=== PATIENT | female | born 1950 | race Caucasian/White ===

== ENCOUNTER 2020-01-03 03:23 | Inpatient (IN) | payer MEDICARE ==
[~2020-01-03] VITALS: Ht 165.1 cm; Wt 64.2 kg
[~2020-01-03 03:23] MED LIST: ACYC-114 PO; ATOR40TA PO; CALC-112 PO; LISI40TA PO; NITR0.4T28 SL; PRAS10TA4 PO; TRAM50TA2 PO
[2020-01-03] MEDS ORDERED: SODIUM CHLORIDE FLUSH 10ML SYR IVF ONE (03:30)
--- NOTE | 2020-01-03 03:30 | NUR ---
PT TO ED PER ROBERTO GAMBOA TRANSFER FOR FURTHER NEURO EVALUATION. PT REPORTS DIZZINESS ONSET 5 DAYS AGO AND SEEN IN THE ER. NEGATIVE WORKUP AT THAT TIME. DIZZINESS PERSISTED AND [facility] AND SENT FOR FURTHER EVALUATION DUE TO GAIT INSTABILITY AND DIZZINESS. WAS GIVEN MECLIZINE, IVF BOLUS AND POTASSIUM. REPORTS NO DIZZINESS WHEN LAYING DOWN. DENIES CURRENT NEEDS. PLACED ON INVAS TECH.
[2020-01-03] MEDS ORDERED: GABA300C PO (03:42)
[2020-01-03] MEDS ORDERED: BENA5TAB3 PO (03:42)
[2020-01-03] MEDS ORDERED: VITA1CAP PO (03:48)
[2020-01-03] MEDS ORDERED: ATOR-2 PO (03:48)
[2020-01-03] MEDS ORDERED: COLE1TAB2 PO (03:48)
[2020-01-03] MEDS ORDERED: METO25TA2 PO (03:48)
[2020-01-03] MEDS ORDERED: GABA100C PO (03:48)
[2020-01-03] MEDS ORDERED: CLOP75TA52 PO (03:48)
[2020-01-03 03:49] LABS: BASOPHILS # (AUTO) 0.04 x10^3/uL (0-0.1); BASOPHILS % (AUTO) 0 % (0-1); EOSINOPHILS % (AUTO) 2 % (1-7); LYMPHOCYTES # (AUTO) 2.87 x10^3/uL (1-3.4); LYMPHOCYTES % (AUTO) 29 % (22-44); MD NO; MEAN CORPUSCULAR HEMOGLOBIN 31.1 pg (27.0-34.8); MEAN CORPUSCULAR HGB CONC 33.1 g/dL (32.4-35.8); MEAN CORPUSCULAR VOLUME 94.2 fL (80-100); MEAN PLATELET VOLUME 8.3 fL (7.4-10.4); MONOCYTES # (AUTO) 0.72 x10^3/uL (0.2-0.8); MONOCYTES % (AUTO) 7 % (2-9); NEUTROPHILS # (AUTO) 5.97 x10^3/uL (1.8-6.8); NEUTROPHILS % (AUTO) 61 % (42-75); PLATELET COUNT 244 x10^3/uL (130-400); RED BLOOD COUNT 4.46 x10^6/uL (3.82-5.3); RED CELL DISTRIBUTION WIDTH 13.5 % (9.6-15.2)
[2020-01-03 03:57] LABS: ALBUMIN 3.5 g/dL (3.4-5.0); ANION GAP 5 mmol/L (5-15); CALCIUM 8.3 mg/dL (8.5-10.1); CHLORIDE 110 mmol/L (98-107)
[2020-01-03 04:00] LABS: INTERNATIONAL NORMALIZED RATIO 1.1 (0.93-1.1); PROTHROMBIN TIME 11.7 Seconds (9.6-11.5)
[2020-01-03 04:03] LABS: ALANINE AMINOTRANSFERASE 27 U/L (12-78); ALKALINE PHOSPHATASE 53 U/L (45-117); BILIRUBIN,TOTAL 0.5 mg/dL (0.2-1.0); CREATININE 1.13 mg/dL (0.55-1.02); TOTAL PROTEIN 7.4 g/dL (6.4-8.2); TROPONIN I < 0.015 ng/mL (0.000-0.045)
--- NOTE | 2020-01-03 04:54 | NUR ---
UPDATED ON PLAN OF CARE FOR INPATIENT ADMISSION. VERBALIZED UNDERSTANDING OF BED HOLD. DENIES CURRENT NEEDS.
--- NOTE | 2020-01-03 05:52 | NUR ---
PT MOVED TO INPATIENT HOSPITAL BED. RESTING AT THIS TIME AND DENIES CURRENT NEEDS OR CONCERNS.
[2020-01-03] MEDS ORDERED: GABAPENTIN 300 MG CAPSULE PO PRN (06:00)
[2020-01-03] MEDS ORDERED: LACTATED RINGERS 1,000 ML IV SCH (06:00)
[2020-01-03] MEDS ORDERED: ACETAMINOPHEN 325 MG TABLET PO PRN (06:00)
[2020-01-03] MEDS ORDERED: PROMETHAZINE 25 MG/ML, 1ML IM PRN (06:00)
[2020-01-03] MEDS ORDERED: LORazepam 1MG TABLET PO PRN (06:00)
[2020-01-03] MEDS ORDERED: ONDANSETRON 2MG/ML, 2ML IVPush PRN (06:00)
--- NOTE | 2020-01-03 06:19 | NUR ---
PT TO MRI
[2020-01-03 06:43] LABS: CHOL/HDL RATIO 3.5; LDL/HDL RATIO 2.1 (0.5-3.0)
[2020-01-03] MEDS ORDERED: GADOTERATE 7.5 MMOL/15 ML SYR ONE (06:47)
[2020-01-03] MEDS ORDERED: MECLIZINE 25 MG TABLET PO PRN (07:00)
--- NOTE | 2020-01-03 07:05 | NUR ---
REPORT RECEIVED FROM KAYLA MORGAN. PT IS RESTING ON HOSPITAL BED W/ CALL LIGHT IN REACH. ALEXIS KAUR.
--- NOTE | 2020-01-03 07:25 | NUR ---
PT AMBULATED ACROSS THE LEWIS TO THE BR W/ A 1 PERSON ASSIST. PT REPORTS LEGS FEEL "WOBBLY". URINE SPECIMEN COLLECTED AND SENT TO LAB. PT RETURNED TO ROOM. CONNECTED TO MONITORING, VSS. AWAITING ADMIT.
[2020-01-03 07:43] LABS: MICROSCOPIC NOT IND
--- NOTE | 2020-01-03 09:02 | NUR ---
REPORT GIVEN TO NICOLE MORGAN. PT IS READY FOR TRANSPORT AT THIS TIME.
[2020-01-03 09:31] VITALS: BP 123/74
[2020-01-03] MEDS: BENAZEPRIL 5 MG TABLET PO SCH (10:24)
[2020-01-03] MEDS: GABAPENTIN 100 MG CAPSULE PO SCH ×3 (10:24→19:54)
[2020-01-03] MEDS: CLOPIDOGREL 75 MG TABLET PO SCH (10:24)
[2020-01-03] MEDS: METOPROLOL SUCCINATE 25 MG TAB.ER.24H PO SCH (10:26)
[2020-01-03 13:50] VITALS: BP 112/69
[2020-01-03 20:19] VITALS: BP 124/81
[2020-01-03] MEDS ORDERED: ATORVASTATIN 80 MG TABLET PO SCH (21:00)
[2020-01-04 01:18] VITALS: BP 138/83
[2020-01-04 07:12] VITALS: BP 123/79
[2020-01-04] MEDS: BENAZEPRIL 5 MG TABLET PO SCH (09:53)
[2020-01-04] MEDS: CLOPIDOGREL 75 MG TABLET PO SCH (09:53)
[2020-01-04] MEDS: GABAPENTIN 100 MG CAPSULE PO SCH (09:53)
[2020-01-04] MEDS: METOPROLOL SUCCINATE 25 MG TAB.ER.24H PO SCH (09:53)
[2020-01-04] MEDS ORDERED: MECL-101 PO (10:49)
[2020-01-04] MEDS ORDERED: ATOR-2 PO (10:49)
[2020-01-04 12:48] VITALS: BP 117/70
== END 2020-01-04 13:30 | disposition home or self-care (01) | DRG 149 ==
LOC: ED 03:54 → EDIP 04:22 → 4EST 09:34 → DCLOUNGE 01-04 13:26
PROVIDERS: ADMIT Family Medicine; ATTEND Family Medicine
DX: H81.10 Benign paroxysmal vertigo, unspecified ear (principal); N17.0 Acute kidney failure with tubular necrosis; Q21.1 Atrial septal defect; N39.0 Urinary tract infection, site not specified; E86.0 Dehydration; I10 Essential (primary) hypertension; E78.5 Hyperlipidemia, unspecified; G43.109 Migraine with aura, not intractable, without status migrainosus; G62.9 Polyneuropathy, unspecified; I25.10 Atherosclerotic heart disease of native coronary artery without angina pectoris; R73.03 Prediabetes; J45.909 Unspecified asthma, uncomplicated; R73.9 Hyperglycemia, unspecified; I25.2 Old myocardial infarction; Z87.891 Personal history of nicotine dependence; Z90.49 Acquired absence of other specified parts of digestive tract; Z90.710 Acquired absence of both cervix and uterus; Z88.0 Allergy status to penicillin; Z88.5 Allergy status to narcotic agent; Z88.2 Allergy status to sulfonamides; Z88.8 Allergy status to other drugs, medicaments and biological substances; Z88.6 Allergy status to analgesic agent
CPT/HCPCS: 36415; 70553; 80053; 80061; 81003; 82607; 83036; 84443; 84484; 85025; 85610; 85730; 93005; 93306; 93880; 99285; G0378; A9575; J7120